=== PATIENT | male | born 1955 | race American Indian/Alaskan Native ===

== ENCOUNTER 2020-05-14 10:07 | Emergency (ER) | payer MEDICAID ==
[2020-05-14] MEDS ORDERED: KETOROLAC 60 MG/2 ML INJ IM ONE (10:35)
[2020-05-14] MEDS ORDERED: dexAMETHasone 20 MG/5 ML VIAL IM ONE (10:35)
[2020-05-14] MEDS ORDERED: CYCLOBENZAPRINE 10 MG TAB PO ONE (10:35)
--- NOTE | 2020-05-14 11:10 | Emergency Department Report ---
ED Back Pain/Injury HPI - General Chief Complaint: Back Pain/Injury Stated Complaint: BACK PAIN Time Seen by Provider: 05/14/20 10:35 Source: patient Limitations: No Limitations - History of Present Illness Initial Comments: Patient is a 64-year-old male presents emergency room with complaints of low back pain that exacerbated last night. He states that he has had this back pain ongoing for the last month but it increased significantly last night and he is now tearful. He states he has been self-medicating with marijuana and alcohol due to the pain. He states that the pain radiates down his left leg. He states occasionally he feels tingling down the left leg. He states that he also has left knee pain and swelling that exacerbated in the last few days, he states he has had this intermittently secondary to a history of rheumatoid arthritis. Patient states that he was previously seeing his primary care doctor for his back pain and was last given a cortisone shot 8 months ago. He denies any history of cancer or IV drug use. He states he has had some urinary frequency. He denies any fever, nausea, vomiting, diarrhea, constipation, abdominal pain, chest pain, shortness of breath, numbness, weakness, bowel or bladder incontinence, saddle numbness. He has a past medical history of RA and gout. No allergies to medications. - Related Data Previous Rx's Medication Instructions Recorded Last Taken Type Meloxicam [Mobic] 15 mg PO DAILY #14 tablet 05/14/20 Unknown Rx Menthol/Camphor [[place] 1 applicatio TP BID #18 oint...g. 05/14/20 Unknown Rx Ointment] methOCARBAMOL [Robaxin TAB] 500 mg PO BID PRN #20 tab 05/14/20 Unknown Rx traMADoL [Ultram 50 MG tab] 50 mg PO Q6HR PRN #12 tablet 05/14/20 Unknown Rx Allergies Allergy/AdvReac Type Severity Reaction Status Date / Time No Known Allergies Allergy Unverified 05/14/20 10:23 ED Review of Systems ROS: Stated complaint: BACK PAIN Other details as noted in HPI Comment: All other systems reviewed and negative ED Past Medical Hx - Past Medical History Previous Medical History?: Yes Hx Arthritis: Yes Additional medical history: GOUT - Medications Home Medications: Home Medications Medication Instructions Recorded Confirmed Last Taken Type Meloxicam [Mobic] 15 mg PO DAILY #14 tablet 05/14/20 Unknown Rx Menthol/Camphor [[place] 1 applicatio TP BID #18 oint...g. 05/14/20 Unknown Rx Ointment] methOCARBAMOL [Robaxin TAB] 500 mg PO BID PRN #20 tab 05/14/20 Unknown Rx traMADoL [Ultram 50 MG tab] 50 mg PO Q6HR PRN #12 tablet 05/14/20 Unknown Rx ED Physical Exam - General Limitations: No Limitations General appearance: alert, in no apparent distress - Head Head exam: Present: atraumatic, normocephalic - Eye Eye exam: Present: normal appearance - ENT ENT exam: Present: mucous membranes moist - Neck Neck exam: Present: normal inspection, full ROM. Absent: tenderness - Respiratory Respiratory exam: Present: normal lung sounds bilaterally. Absent: respiratory distress, wheezes, rales, rhonchi, stridor, chest wall tenderness, accessory muscle use, decreased breath sounds, prolonged expiratory - Cardiovascular Cardiovascular Exam: Present: regular rate, normal rhythm, normal heart sounds. Absent: systolic murmur, diastolic murmur, rubs, gallop - GI/Abdominal GI/Abdominal exam: Present: soft, normal bowel sounds. Absent: distended, tenderness, guarding, rebound, rigid - Extremities Exam Extremities exam: Present: other (edema present to the left knee, no bony ttp, slightly decreased ROM of the left knee secondary to edema, can flex greater than 90 degrees, no erythema, no increased warmth, no skin changes, neurovascularly intact) - Back Exam Back exam: Present: normal inspection, full ROM, paraspinal tenderness (lumbar), vertebral tenderness (lumbar), other (pain with SLR of the left leg) - Neurological Exam Neurological exam: Present: alert, oriented X3, CN II-XII intact, normal gait. Absent: motor sensory deficit - Psychiatric Psychiatric exam: Present: normal affect, normal mood - Skin Skin exam: Present: warm, dry, intact ED Course Vital Signs 05/14/20 05/14/20 05/14/20 10:23 11:31 12:34 Temperature 98.6 F Pulse Rate 95 H 88 Respiratory 16 18 18 Rate Blood Pressure 184/89 180/88 [Right] O2 Sat by Pulse 98 98 Oximetry ED Medical Decision Making - Lab Data Vital Signs 0105/14/20 05/14/20 10:23 11:31 12:34 Temperature 98.6 F Pulse Rate 95 H 88 Respiratory 16 18 18 Rate Blood Pressure 184/89 180/88 [Right] O2 Sat by Pulse 98 98 Oximetry - Radiology Data Radiology results: report reviewed Ordering Physician: VANITA VALENTINE Date of Service: 05/14/20 Procedure(s): XR knee 3V LT Accession Number(s): [id number] cc: VANITA VALENTINE Fluoro Time In Minutes: Left knee radiograph, 3 views. HISTORY: Left knee pain and swelling. COMPARISON: None FINDINGS: There is moderate tricomponent osteoarthritis of the left knee, preferentially involving the medial compartment. No acute fracture or dislocation. No significant joint capsular distention. There is mild soft tissue swelling of the anterior soft tissues, nonspecific. IMPRESSION: Soft tissue swelling with moderate osteoarthritis of the left knee. No acute process. Signer Name: Neo Jacob MD Signed: 05/14/2020 11:11 AM Workstation Name: [id number] Transcribed By: JS Dictated By: NEO JACOB MD Electronically Authenticated By: NEO JACOB MD Signed Date/Time: 05/14/20 1111 DD/ 1110 TD/TT: X-ray lumbar spine Radiologist Kartik Wang MD Impression advanced discogenic degenerative changes seen throughout the spine CT lumbar spine Radiologist Young Pardo MD Impression Degenerative grade 1 spondylolisthesis at L3/4 is associated with severe central canal stenosis. Findings indicate the presence of a moderate central disc protrusion with thecal sac compression - Medical Decision Making Patient is a 64-year-old male presents emergency room with complaints of low back pain that exacerbated last night. He states that he has had this back pain ongoing for the last month but it increased significantly last night and he is now tearful. He states he has been self-medicating with marijuana and alcohol due to the pain. He states that the pain radiates down his left leg. He states occasionally he feels tingling down the left leg. He states that he also has left knee pain and swelling that exacerbated in the last few days, he states he has had this intermittently secondary to a history of rheumatoid arthritis. Patient states that he was previously seeing his primary care doctor for his back pain and was last given a cortisone shot 8 months ago. He denies any history of cancer or IV drug use. He states he has had some urinary frequency. He denies any fever, nausea, vomiting, diarrhea, constipation, abdominal pain, chest pain, shortness of breath, numbness, weakness, bowel or bladder incontinence, saddle numbness. He has a past medical history of RA and gout. No allergies to medications. Vitals with elevated blood pressure, otherwise stable, discussed primary care follow-up regarding blood pressure, low-sodium diet, increasing water intake, keeping blood pressure log. On exam: edema present to the left knee, no bony ttp, slightly decreased ROM of the left knee secondary to edema, can flex greater than 90 degrees, no erythema, no increased warmth, no skin changes, neurovascularly intact, midline and paraspinal lumbar tenderness palpation, no step-offs, no deformities, no focal neuro deficits, pain with straight leg raise of the left leg. UA is within normal limits. CT lumbar spine imaging ordered secondary to history of cortisone injections and age greater than 50. XR left knee: IMPRESSION: Soft tissue swelling with moderate osteoarthritis of the left knee. No acute process. no clinical signs of septic joint or cellulitis. XR lumbar spine not ordered by me: Impression advanced discogenic degenerative changes seen throughout the spine. CT lumbar spine: Degenerative grade 1 spondylolisthesis at L3/4 is associated with severe central canal stenosis. Findings indicate the presence of a moderate central disc protrusion with thecal sac compression. Discussed all results with patient discussed the importance of follow-up. Patient given medications on the emergency department and symptoms significantly improved and he was feeling much better and ready to go home. Patient has not had frequent narcotic prescriptions as [facility]. Will place on short course of tramadol. Patient will be referred to orthopedic and neurosurgeon. Patient's knee placed in Natan wrap by beauty director and remained neurovascular intact. Advised patient Please use medication as prescribed. Do not drive or operate machinery while taking pain medication or muscle relaxer. May use ice pack, heating pad, rest, Epson salt bath. Please do not wear Natan bandage too tightly and do not wear at night while sleeping. Please elevate the leg. Follow-up with orthopedic doctor regarding your knee pain. Follow-up with a neurosurgeon regarding her back pain. Return to emergency room immediately for any new or worsening symptoms. 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 ED Disposition Clinical Impression: Spondylosis, Bulging lumbar disc Left knee pain Qualifiers: Chronicity: acute Qualified Code(s): M25.562 - Pain in left knee Osteoarthritis of left knee Qualifiers: Osteoarthritis type: unspecified Qualified Code(s): M17.12 - Unilateral primary osteoarthritis, left knee Back pain Qualifiers: Back pain location: low back pain Chronicity: acute Back pain laterality: midline Sciatica presence: with sciatica Sciatica laterality: sciatica of left side Qualified Code(s): M54.42 - Lumbago with sciatica, left side DDD (degenerative disc disease) Qualifiers: Spinal region: thoracolumbar Qualified Code(s): M51.35 - Other intervertebral disc degeneration, thoracolumbar region Disposition: DC-01 TO HOME OR SELFCARE Is pt being admited?: No Does the pt Need Aspirin: No Condition: Stable Instructions: Osteoarthritis, Herniated Disk, [id number], Spinal Stenosis, [id number] Additional Instructions: Please use medication as prescribed. Do not drive or operate machinery while taking pain medication or muscle relaxer. May use ice pack, heating pad, rest, Epson salt bath. Please do not wear Natan bandage too tightly and do not wear at night while sleeping. Please elevate the leg. Follow-up with orthopedic doctor regarding your knee pain. Follow-up with a neurosurgeon regarding her back pain. Return to emergency room immediately for any new or worsening symptoms. Prescriptions: Meloxicam [Mobic] 15 mg PO DAILY #14 tablet methOCARBAMOL [Robaxin TAB] 500 mg PO BID PRN #20 tab PRN Reason: pain Menthol/Camphor [[place] Ointment] 1 applicatio TP BID #18 oint...g. traMADoL [Ultram 50 MG tab] 50 mg PO Q6HR PRN #12 tablet PRN Reason: Pain , Severe (7-10) Referrals: [facility] [Provider Group] - 3-5 Days REY LINARES MD [Staff Physician] - 3-5 Days AWA MCKEE II, MD [Staff Physician] - 3-5 Days [facility], [Primary Care Provider] - 3-5 Days Time of Disposition: 12:01 Print Language: ROMANIAN
[2020-05-14 11:13] LABS: Bilirubin,Urine NEG (Negative); Blood,Urine NEG (Negative); Color,Urine Yellow (Yellow); Hyaline Casts,Urine 1 /LPF; Mucus,Urine FEW /HPF; Urobilinogen,Urine < 2.0 mg/dL (<2.0); WBC,Urine < 1.0 /HPF (0.0-6.0)
--- NOTE | 2020-05-14 11:16 | XRay Report ---
Left knee radiograph, 3 views. HISTORY: Left knee pain and swelling. COMPARISON: None FINDINGS: There is moderate tricomponent osteoarthritis of the left knee, preferentially involving th e medial compartment. No acute fracture or dislocation. No significant joint capsular distention. The re is mild soft tissue swelling of the anterior soft tissues, nonspecific. IMPRESSION: Soft tissue swelling with moderate osteoarthritis of the left knee. No acute process. Signer Name: Anjel Jacob MD Signed: 05/14/2020 11:11 AM Workstation Name: [id number]
--- NOTE | 2020-05-14 11:17 | XRay Report ---
Lumbar spine 3 views INDICATION: Back pain FINDINGS: Mild anterior listhesis of L3 on L4 measuring 8 mm. Discogenic degenerative changes seen th roughout the thoracic spine and lumbar spine with facet arthropathy throughout. No severe loss of kalyani tebral body height. IMPRESSION: Advanced discogenic degenerative changes seen throughout the spine. Signer Name: Cesar Wang MD Signed: 05/14/2020 11:13 AM Workstation Name: [id number]
--- NOTE | 2020-05-14 11:54 | Cat Scan Report ---
CT LUMBAR SPINE WITHOUT CONTRAST INDICATION: low back pain, radiates down left leg. TECHNIQUE: Axial CT images of the lumbar spine were obtained after administration of intrathecal contrast. Sagi ttal and coronal reformatted images were produced. All CT scans at this location are performed using CT dose reduction for ALARA by means of automated exposure control. COMPARISON: Lumbar spine series 05/14/2020 FINDINGS: POST-SURGICAL CHANGES: None. ALIGNMENT: Grade 1 spondylolisthesis is noted at the L3-4 level. No additional abnormalities of align ment are identified. VERTEBRAE:Chronic compression deformity L5 vertebral body. No indication of recent fracture or bone d estruction. INTERVERTEBRAL DISCS: Loss of disc height and disc vacuum phenomena are demonstrated at L 4-5. Loss of disc height is also observed at L5-S1. [id number] ANALYSIS: T11-T12: Right lateral osteophyte formation is a prominent finding. Anterior osteophyte and mild left lateral osteophyte are also observed. Central spinal canal is adequately maintained. T12/L1: Mild left lateral osteophyte formation is noted. Right worse than left facet arthritic change s are observed. Central spinal canal and neuroforamina are adequate in size. L1-2: Large left lateral osteophyte formation is observed. No additional abnormality. L2-3: Right worse than left facet arthritic changes are noted. Large bilateral lateral osteophytes ar e observed. Central spinal canal is adequately maintained. Mild neuroforaminal narrowing is present b ilaterally at the L to nerve root level. L3-4: Bilateral facet arthropathy is noted. Grade 1 spondylolisthesis is evident. In addition a broad -based disc bulge is observed. This combination of degenerative changes results in severe central can al stenosis at the L3-4 level. Mild bilateral neuroforaminal narrowing is observed. L4-5: Large right anterior and lateral osteophytes are noted. Loss of disc height and disc vacuum phe nomena are observed. There is evidence of a moderate central disc protrusion with thecal sac compress ion. The thecal sac is diminished in size in spite of an adequate sized bony spinal canal. Bilateral facet arthritic changes are noted. The C4 nerve root neuroforamina are adequately maintained. L5-S1: Anterior osteophyte formation is a prominent finding at this level. Transitional vertebral nhan bari is noted there is a sacralized right L5 transverse process which is fused to the S1 sacral ala a nd adjacent iliac bones. Central spinal canal is adequate in size. Moderate bilateral foraminal narro wing is noted secondary to loss of disc height and facet arthropathy. PARASPINAL SOFT TISSUES: No significant abnormality. ADDITIONAL FINDINGS: None. IMPRESSION: 1. Degenerative grade 1 spondylolisthesis at L3-4 is associated with severe central canal stenosis. 2. Findings indicate the presence of a moderate central disc protrusion with thecal sac compression. Signer Name: Young Pardo MD Signed: 05/14/2020 11:49 AM Workstation Name: [id number]
[2020-05-14 12:34] VITALS: BP 180/88
== END 2020-05-14 12:31 | disposition home or self-care (01) ==
LOC: ED 10:07
DX: M51.35 Other intervertebral disc degeneration, thoracolumbar region (principal); M51.26 Other intervertebral disc displacement, lumbar region; M47.816 Spondylosis without myelopathy or radiculopathy, lumbar region; M17.12 Unilateral primary osteoarthritis, left knee; M10.9 Gout, unspecified; Z79.899 Other long term (current) drug therapy
CPT/HCPCS: 72100; 72131; 73562; 81001; 96372; 99284; J1100; J1885